=== PATIENT | female | born 1985 | race Caucasian/White ===

== ENCOUNTER 2016-08-15 00:19 | Emergency (ER) | payer OTHER ==
[~2016-08-15] VITALS: Ht 172.7 cm; Wt 90.7 kg
[~2016-08-15 00:19] MED LIST: CELEBREX 200MG200 MG PO; CINNAMON500 MG PO; CYCLOBENZAPRINE5 M1 PO; CYMBALTA 30 MG30 MG PO; DULOXETINE HYDR60 MG PO; FOLIC ACID0.8 MG PO; HUMALOG100 U/ML SC; INSULIN HUMA100 U/ML SC; LYRICA75 MG PO; MOTRIN800 MG PO; NORCO 325 MG-51 TAB PO; PANTOPRAZOLE SO40 MG PO; PERCOCET 325 MG1 TA2 PO; PROTONIX 40MG T40 MG PO; RANITIDINE150 MG PO; TYLENOL #31 TAB PO; VITAMIN B121000 MC2 PO; VITAMIN B6100 MG PO; ZANTAC 150MG150 MG PO; ZOFRAN ODT4 MG PO
--- NOTE | 2016-08-15 02:03 | ED SKIN/ALLERGY COMPLAINT ---
History of Present Illness General Chief Complaint: Skin Rash/ Abcess Stated Complaint: ABSCESSES ON COCCYX,AND VAGINAL AREA Source: patient, family, old records Exam Limitations: no limitations Vital Signs & Intake/Output Vital Signs & Intake/Output Vital Signs Date Time Temp Pulse Resp B/P Pulse O2 O2 Flow FiO2 Ox Delivery Rate 08/15 0211 98.8 89 18 128/72 99 Room Air 08/15 0035 99.3 97 18 131/73 99 Room Air Allergies Coded Allergies: Penicillins (Intermediate, HIVES 08/15/16) aspirin (FAMILY HISTORY 08/15/16) Reconcile Medications Cephalexin (Keflex) 500 MG CAPSULE 1 CAP PO TID cellulitis Cinnamon 500 MG CAP 2 CAP PO DAILY SUPPLEMENT (Reported) Cyanocobalamin (Vitamin B12) (Unknown Strength) TAB (Unknown Dose) PO DAILY SUPPLEMENT (Reported) CYCLOBENZAPRINE HCL (Cyclobenzaprine Hydrochloride) 5 MG TABLET 2 TAB PO PRN MUSCLE SPASMS (Reported) Doxycycline Hyclate (Vibramycin) 100 MG CAPSULE 1 CAP PO BID cellulitis DULOXETINE HCL (Duloxetine Hydrochloride) 60 MG CAPSULE.DR 1 CAP PO DAILY FIBROMYALGIA (Reported) Folic Acid 0.8 MG TAB 1 TAB PO DAILY SUPPLEMENT (Reported) Ibuprofen (Motrin) 800 MG TAB 1 TAB PO TID PRN PAIN Insulin Lispro, Recombinant (Humalog) 100 U/ML MELE INSULIN PUMP-OMNIPOD ( Reported) OXYCODONE HCL/ACETAMINOPHEN (Percocet 5-325 MG Tablet) 325 MG/5 MG TAB 1-2 TAB PO Q4-6 PRN PRN BREAKTHROUGH PAIN Pantoprazole Sodium 40 MG TABLET.DR 2 TAB PO DAILY AC GI (Reported) Pregabalin (Lyrica) 75 MG CAPSULE 1 CAP PO BID FIBROMYALGIA (Reported) Pyridoxine (Vitamin B6) (Unknown Strength) TAB (Unknown Dose) PO DAILY SUPPLEMENT (Reported) RANITIDINE HCL (Ranitidine HCl) 150 MG TABLET 1 TAB PO BID GI (Reported) Tramadol HCl (Ultram) 50 MG TABLET 1-2 TAB PO Q6PRN PRN severe pain Triage Note: PT TO ED C/O LARGE ABCESS ON LABIA, NOW HAS RED SPOT IN BETWEEN BUTTOCKS. NOT SURE IF IT'S FROM SHAVING. PMH OF IDDM, HAS INSULIN PUMP. TEMP 99.3 Triage Nurses Notes Reviewed? yes Duration: day(s):, constant, continues in ED, getting worse Timing: recent history Severity: moderate Location: genitalia, pilonidal Possible Factors: no cause identified No Modifying Factors: none Associated Symptoms: blisters, change in skin texture, swelling/mass/lumps LMP (ages 10-50): unknown : No Patient currently breastfeeds: No HPI: 2 days prior to admission patient complains of itchy pain in the pilonidal area especially when sitting. She also complains of increasing cysts on her labia majora with pain. She denies fever chills chest pain cough shortness of breath nausea vomiting diarrhea abdominal pain dysuria bleeding. Past History Travel History Traveled to [place] past 21 day No Medical History Any Pertinent Medical History? 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 No Review of Systems Review of Systems Constitutional: Reports: no symptoms. EENTM: Reports: no symptoms. Respiratory: Reports: no symptoms. Cardiovascular: Reports: no symptoms. GI: Reports: no symptoms. Genitourinary: Reports: see HPI, pain. Musculoskeletal: Reports: no symptoms. Skin: Reports: see HPI, rash. Neurological/Psychological: Reports: no symptoms. Hematologic/Endocrine: Reports: no symptoms. Immunologic/Allergic: Reports: no symptoms. All Other Systems: Reviewed and Negative Physical Exam Physical Exam General Appearance: well developed/nourished, alert, awake, anxious, moderate distress, obese Head: atraumatic, normal appearance Eyes: Bilateral: normal appearance, PERRL, EOMI. Ears, Nose, Throat: normal pharynx, normal ENT inspection, hearing grossly normal Neck: normal inspection, supple, full range of motion, no midline tenderness Respiratory: normal breath sounds, chest non-tender, no respiratory distress, quiet respiration, lungs clear Cardiovascular: regular rate/rhythm, normal peripheral pulses, norml femoral pulses equa Peripheral Pulses: 4+ carotid (R), 4+ carotid (L) Gastrointestinal: normal bowel sounds, soft, non-tender, no organomegaly Rectal: pilonidal cyst right gluteal tender to touch firm indurated Back: normal inspection Extremities: normal inspection, normal range of motion, no edema Neurologic/Psych: awake, alert, oriented x 3, normal mood/affect Reflexes: 2+: bicep (R), bicep (L). Skin: intact, normal color, rash, bilateral labial tenderness with induration Skin Problem Location: pilonidal, bilateral labia majora Skin Problem Character: abcess, lesion, rash, tenderness, thickening Lymphatic: no anterior cervical gina Progress Differential Diagnosis: abscess/cellulitis, allergic reaction, contact dermatitis Plan of Care: NETWORK SYSTEMS ANALYST follow-up I&D Departure Departure Time of Disposition: 201 Disposition: HOME OR SELF CARE Condition: Stable Clinical Impression Primary Impression: Abscess of left genital labia Secondary Impressions: Abscess of right genital labia, Pilonidal cyst Referrals: SY MCCABE JR, DO Call for colorectal surgery evaluation STEFANIA JOSHI,MARGARITA (PCP/Family) ISABEL JOSHI,ALFREDA Buchanan Call for gynecology follow up Departure Forms: Customer Survey General Discharge Information Prescriptions: Current Visit Scripts Cephalexin (Keflex) 1 CAP PO TID #30 CAP Doxycycline Hyclate (Vibramycin) 1 CAP PO BID #20 CAP Tramadol HCl (Ultram) 1-2 TAB PO Q6PRN PRN severe pain #30 TAB Procedures Incision and Drainage Site: right pilonidal Blade Size: 10 I & D Procedure: Yes: betadine prep, sterile drapes applied, sterile dressing applied. No: wick placed. Progress: No drainage from cyst cavity
[2016-08-15] MEDS ORDERED: VIBRAMYCIN100 MG PO (02:05)
[2016-08-15] MEDS ORDERED: KEFLEX500 M1 PO (02:05)
[2016-08-15] MEDS ORDERED: ULTRAM50 M1 PO (02:05)
[2016-08-15 02:11] VITALS: BP 128/72
== END 2016-08-15 02:13 ==
LOC: ERH 00:19
DX: N76.4 Abscess of vulva (principal); L05.91 Pilonidal cyst without abscess

== ENCOUNTER 2016-10-26 14:18 | Emergency (ER) | payer OTHER ==
[~2016-10-26 14:18] MED LIST changes: +KEFLEX500 M1 PO; +ULTRAM50 M1 PO; +VIBRAMYCIN100 MG PO
[2016-10-26 14:30] VITALS: BP 116/76
--- NOTE | 2016-10-26 15:02 | ED HAND/WRIST INJURY COMPLAINT ---
History of Present Illness General Chief Complaint: Laceration Procedure Stated Complaint: LAC TO L INDEX FINGER Source: patient Exam Limitations: no limitations Vital Signs & Intake/Output Vital Signs & Intake/Output Vital Signs Date Time Temp Pulse Resp B/P Pulse O2 O2 Flow FiO2 Ox Delivery Rate 10/26 1430 98.0 87 22 116/76 98 Room Air Allergies Coded Allergies: Penicillins (Intermediate, HIVES 08/15/16) aspirin (FAMILY HISTORY 08/15/16) Reconcile Medications Cephalexin (Keflex) 500 MG CAPSULE 1 CAP PO TID cellulitis Cinnamon 500 MG CAP 2 CAP PO DAILY SUPPLEMENT (Reported) Cyanocobalamin (Vitamin B12) (Unknown Strength) TAB (Unknown Dose) PO DAILY SUPPLEMENT (Reported) CYCLOBENZAPRINE HCL (Cyclobenzaprine Hydrochloride) 5 MG TABLET 2 TAB PO PRN MUSCLE SPASMS (Reported) Doxycycline Hyclate (Vibramycin) 100 MG CAPSULE 1 CAP PO BID cellulitis DULOXETINE HCL (Duloxetine Hydrochloride) 60 MG CAPSULE.DR 1 CAP PO DAILY FIBROMYALGIA (Reported) Folic Acid 0.8 MG TAB 1 TAB PO DAILY SUPPLEMENT (Reported) Ibuprofen (Motrin) 800 MG TAB 1 TAB PO TID PRN PAIN Insulin Lispro, Recombinant (Humalog) 100 U/ML MELE INSULIN PUMP-OMNIPOD ( Reported) OXYCODONE HCL/ACETAMINOPHEN (Percocet 5-325 MG Tablet) 325 MG/5 MG TAB 1-2 TAB PO Q4-6 PRN PRN BREAKTHROUGH PAIN Pantoprazole Sodium 40 MG TABLET.DR 2 TAB PO DAILY AC GI (Reported) Pregabalin (Lyrica) 75 MG CAPSULE 1 CAP PO BID FIBROMYALGIA (Reported) Pyridoxine (Vitamin B6) (Unknown Strength) TAB (Unknown Dose) PO DAILY SUPPLEMENT (Reported) RANITIDINE HCL (Ranitidine HCl) 150 MG TABLET 1 TAB PO BID GI (Reported) Tramadol HCl (Ultram) 50 MG TABLET 1-2 TAB PO Q6PRN PRN severe pain Triage Note: PER PT LAC TO L INDEX FINGER 30 MINUTES CONVEYOR 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 yes Occurred: just prior to arrival Duration: minute(s):, constant, continues in ED Timing: recent history Injury Environment: home Severity: mild, moderate Pain/Injury Location: Left: 1st finger. Method of Injury: laceration No Modifying Factors: none : No Patient currently breastfeeds: No HPI: 31-year-old female comes into emergency room for further evaluation of laceration to left index finger. Patient reports that she cut it while she was using a kitchen knife making dinner. Tetanus shot up-to-date. Mild throbbing pain. Continuous. Associated bleeding. Denies any other associated symptoms. (DAVID MCCRARY) Past History Travel History Traveled to [place] past 21 day No Medical History Any Pertinent Medical History? 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 No (DAVID MCCRARY) Review of Systems Review of Systems Constitutional: Reports: no symptoms. EENTM: Reports: no symptoms. Respiratory: Reports: no symptoms. Cardiovascular: Reports: no symptoms. GI: Reports: no symptoms. Genitourinary: Reports: no symptoms. Musculoskeletal: Reports: see HPI. Skin: Reports: no symptoms. Neurological/Psychological: Reports: no symptoms. Hematologic/Endocrine: Reports: no symptoms. Immunologic/Allergic: Reports: no symptoms. All Other Systems: Reviewed and Negative (DAVID MCCRARY) Physical Exam Physical Exam General Appearance: well developed/nourished, mild distress Head: atraumatic Eyes: Bilateral: normal appearance. Ears, Nose, Throat: normal ENT inspection, hearing grossly normal Neck: normal inspection Cardiovascular/Respiratory: no respiratory distress Back: normal inspection Hand Left: 2nd finger, laceration, full range of motion,associated bleeding, cap refill intact, no evidence of tendon laceration Hand Right: normal inspection Neurologic/Tendon: normal sensation, normal motor functions, normal tendon functions, responds to pain, no evidence tendon injury, no pulse deficit Skin: intact, normal color, warm/dry Lymphatic: no anterior cervical gina (DAVID MCCRARY) Progress Differential Diagnosis: dislocation, felon, fracture, gout, paronychia, sprain, tenosynovitis Plan of Care: 10/26/2016 3:40:55 PM (DAVID MCCRARY) Departure Departure Disposition: HOME OR SELF CARE Condition: Stable Clinical Impression Primary Impression: Finger laceration Referrals: MARGARITA AGUIAR MD (PCP/Family) Additional Instructions: Return in 7-10 days for suture removal. Keep covered with dry sterile dressing and bacitracin. Stain finger splint until stitches are removed. Watch for signs of infection such as redness or discharge fever or chills. Please go over all results of today's visit with your primary care doctor. Contact your primary care doctor to let them know you were here in the emergency room. There may be nonspecific findings which may not be related to your visit today here in the emergency room but may require further evaluation and chronic monitoring by your primary care doctor. If you had a laceration today the chance of foreign body always remains. You should follow-up with your primary care doctor for recheck in 3-5 days for a wound check. If you had an x-ray done there is a chance that a fracture could have been missed on initial read and you should follow-up with your primary care doctor for repeat x-rays if symptoms persist. If your blood pressure was elevated here in the emergency room please have rechecked by her primary care doctor within the next 48 hours by your primary care doctor. If you were prescribed a narcotic here in the emergency room or any type of controlled substances you're not allowed to drive while taking this medication or operate any type of heavy machinery. Narcotics can make you feel lightheaded dizziness nausea and can cause constipation. You may need to apple picker a stool softener. Thank you for choosing [facility] emergency room. Please return to the emergency room immediately if you have any other concerns worsening of symptoms. Departure Forms: Customer Survey General Discharge Information (DAVID MCCRARY) PA/LEATHER COATER Co-Sign Statement Statement: ED Attending supervision documentation- [] I saw and evaluated the patient. I have also reviewed all the pertinent lab results and diagnostic results. I agree with the findings and the plan of care as documented in the PA's/LEATHER COATER's documentation. [X] I have reviewed the ED Record and agree with the PA's/LEATHER COATER's documentation. [] Additions or exceptions (if any) to the PAs/LEATHER COATER's note and plan are summarized below: [] (JOHN JOSHI,BOONE Padgett) Procedures Laceration/Wound Repair Progress: 2.5 cm laceration left index finger, full range of motion, no evidence of tendon laceration, Betadine prep, 1% lidocaine, 3 mL injected, 5. 0 nylon, 5 sutures placed, patient tolerated procedure well, sterile technique, (DAVID MCCRARY)
== END 2016-10-26 15:26 ==
LOC: ERH 14:18
DX: S61.211A Laceration without foreign body of left index finger without damage to nail, initial encounter (principal); W26.0XXA Contact with knife, initial encounter; Y93.G3 Activity, cooking and baking; Y92.009 Unspecified place in unspecified non-institutional (private) residence as the place of occurrence of the external cause